=== PATIENT | female | born 2005 | race Caucasian/White ===

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

== ENCOUNTER 2024-01-31 13:37 | Emergency (ER) | payer OTHER ==
[~2024-01-31] VITALS: Ht 167.6 cm; Wt 78.0 kg
[~2024-01-31 13:37] MED LIST: ONDA-282 PO
[2024-01-31 13:38] VITALS: BP 120/66; TEMP 97.6; O2SAT 97
[2024-01-31] MEDS ORDERED: ACET32TAB PO (14:10)
[2024-01-31] MEDS ORDERED: misc EXT (15:43)
== END 2024-01-31 15:51 | disposition home or self-care (01) ==
LOC: M ED 13:37
DX: S93.401A Sprain of unspecified ligament of right ankle, initial encounter (principal); X50.1XXA Overexertion from prolonged static or awkward postures, initial encounter; Y92.9 Unspecified place or not applicable; Y93.9 Activity, unspecified; Y99.0 Civilian activity done for income or pay; Z88.1 Allergy status to other antibiotic agents

== ENCOUNTER → 2024-02-01 | Outpatient (CLI) | payer OTHER ==
[~2024-02-01] MED LIST changes: +ACET32TAB PO; +misc EXT
== END ==
LOC: M SOG 07:25
PROVIDERS: ATTEND Physician Assistant
DX: Z53.9 Procedure and treatment not carried out, unspecified reason (principal)

== ENCOUNTER 2024-09-05 09:09 | Emergency (ER) | payer OTHER ==
[~2024-09-05] VITALS: Ht 167.6 cm; Wt 98.7 kg
[2024-09-05] MEDS: METOCLOPRAMIDE INJ 10MG/2ML VIAL IV ONE (11:01)
[2024-09-05] MEDS: KETOROLAC 30 MG/ML 1ML VIAL IV ONE (11:01)
[2024-09-05] MEDS ORDERED: ONDA-282 PO (12:13)
[2024-09-05 12:39] VITALS: BP 118/56; TEMP 98.1; O2SAT 95
== END 2024-09-05 12:44 | disposition home or self-care (01) ==
LOC: EDBD 09:09 → M ED 09:09
DX: R51.9 Headache, unspecified (principal); F12.10 Cannabis abuse, uncomplicated; Z88.1 Allergy status to other antibiotic agents
CPT/HCPCS: 87486; 87581; 87633; 87798; 96374; 96375; 99284; J1885; J2765

== ENCOUNTER 2025-03-01 20:42 | Emergency (ER) | payer OTHER ==
[~2025-03-01] VITALS: Ht 162.6 cm; Wt 98.6 kg
[2025-03-01 23:11] VITALS: BP 109/73; TEMP 99.2; O2SAT 99
== END 2025-03-02 01:12 | disposition left against medical advice (07) ==
LOC: M ED 20:42
DX: Z53.21 Procedure and treatment not carried out due to patient leaving prior to being seen by health care provider (principal)